=== PATIENT | female | born 1955 | race Asian ===

== ENCOUNTER 2017-03-24 01:45 | Emergency (ER) | payer OTHER ==
[~2017-03-24] VITALS: Ht 165.1 cm; Wt 70.0 kg
[~2017-03-24 01:45] MED LIST: AMLO1CAP70; CIPR500T4 PO; PHEN-537 PO
[2017-03-24] MEDS ORDERED: SOD CHLORIDE 0.9% 500 ML IV STA (01:50)
[2017-03-24] MEDS ORDERED: morphine 4 MG/ML VIAL IV STA (01:50)
[2017-03-24] MEDS ORDERED: ONDANSETRON 4 MG INJ IV STA (01:50)
[2017-03-24] MEDS ORDERED: METOCLOPRAMIDE 10 MG INJ IV STA (01:50)
[2017-03-24 02:00] VITALS: Ht 165.1 cm; Wt 70.0 kg
--- NOTE | 2017-03-24 02:32 | RADRPT ---
PROCEDURE: XR Chest. CLINICAL INDICATION: Chest pain TECHNIQUE: AP Portable chest. COMPARISON: No pertinent prior examinations were submitted for comparison. FINDINGS: There is mild cardiomegaly. The lungs are clear. The osseous structures are unremarkable. IMPRESSION: No acute findings. RPTAT: HIKT .Narciso Velasquez MD, Date Time Electronically viewed and signed by .Narciso Velasquez MD, on 03/24/2017 02:32 .T/
[2017-03-24 02:56] LABS: BASOPHILS % 0.6 % (0.0-2.0); EOSINOPHILS # 0.9 10^3/ul (0.0-0.5); EOSINOPHILS % 12.4 % (0.0-7.0); HEMATOCRIT 41.1 % (37.0-47.0); HEMOGLOBIN 13.4 g/dl (12.0-16.0); LYMPHOCYTES # 2.7 10^3/ul (0.8-2.9); LYMPHOCYTES % 38.8 % (15.0-51.0); MEAN CORPUSCULAR HEMOGLOBIN 27.9 pg (29.0-33.0); MEAN CORPUSCULAR HGB CONC 32.6 g/dl (32.0-37.0); MEAN CORPUSCULAR VOLUME 85.4 fl (82.0-101.0); MEAN PLATELET VOLUME 10.5 fl (7.4-10.4); MONOCYTE # 0.7 10^3/ul (0.3-0.9); MONOCYTES % 10.5 % (0.0-11.0); NEUTROPHIL # 2.7 10^3/ul (1.6-7.5); NEUTROPHILS % 37.6 % (39.0-77.0); PLATELET COUNT 257 10^3/UL (140-415); RED BLOOD COUNT 4.81 10^6/ul (4.20-5.40); RED CELL DISTRIBUTION WIDTH 13.3 % (11.5-14.5)
[2017-03-24 03:11] LABS: INR 0.86; PROTIME 11.7 Sec (12.2-14.2); PT RATIO 0.9
[2017-03-24 03:12] LABS: PARTIAL THROMBOPLASTIN TIME 25.6 Sec (25.0-35.0)
--- NOTE | 2017-03-24 03:31 | RADRPT ---
PROCEDURE: Noncontrast CT Head. CLINICAL INDICATION: Headache TECHNIQUE: Noncontrast CT of the head was obtained. The administered radiation dose was CTDI vol = 45 mGy, DLP = 630 mGy-cm. One or more of the following dose reduction techniques were used: automate d exposure control, adjustment of the mA and/or kV according to patient size and/or use of iterative reconstruction technique. COMPARISON: No pertinent prior examinations were submitted for comparison. FINDINGS: The ventricles and sulci are within normal limits. There is no acute intracranial hemorrhage or ext ra-axial fluid collection. There is no mass effect. No midline shift is identified. There is no loss of turcios-white differentiation to suggest acute infarction. The orbits are within normal limits. Some mild mucosal thickening is scattered throughout the par[place] theresa sinuses. No destructive osseous lesion is identified. IMPRESSION: No acute findings. RPTAT: HIKT .Narciso Velasquez MD, MD Date Time Electronically viewed and signed by .Narciso Velasquez MD, on 03/24/2017 03:30 .T/
[2017-03-24 04:35] LABS: ANION GAP 16 (8-16); BLOOD UREA NITROGEN 17 mg/dl (7-20); CALCIUM 9.8 mg/dl (8.4-10.2); CARBON DIOXIDE 27 mmol/L (21-31); CHLORIDE 103 mmol/L (97-110); CREATININE 1.01 mg/dl (0.44-1.00); GLUCOSE 114 mg/dl (70-220); POTASSIUM 3.9 mmol/L (3.5-5.1); SODIUM 142 mmol/L (135-144)
[2017-03-24 04:52] LABS: TROPONIN-I < 0.012 ng/ml (0.00-0.12)
--- NOTE | 2017-03-24 05:14 | ERD ---
ER Documentation Chief Complaint Date/Time DATE: 03/24/17 TIME: 05:12 Chief Complaint bib ra from home for dizziness, nausea, abdominal pain HPI This is a 7-year-old female brought in by rescue for dizziness headache nausea. Headache is mild to moderate intensity. No focal neurological complaints. Patient does feel mildly dizzy. No other current issues. Headache is frontal, throbbing, nonradiating with no exacerbating or alleviating factors. Headache started today with dizziness and nausea. ROS All systems reviewed and are negative except as per history of present illness. Medications Home Meds Active Scripts Phenazopyridine Hcl* (Pyridium*) 100 Mg Tab, 100 MG PO TID Y for PAIN, #8 TAB Prov:CAROL LIM PA-C 10/18/15 Ciprofloxacin Hcl* (Ciprofloxacin Hcl*) 500 Mg Tablet, 500 MG PO BID for 3 Days , TAB Prov:CAROL LIM PA-C 10/18/15 Reported Medications Amlodipine Besylate/Benazepril (Lotrel 10-20 Mg Capsule) 1 Cap Capsule 06/02/10 Allergies Allergies: Coded Allergies: No Known Drug Allergies (Verified Allergy, Mild, 10/18/15) PMhx/Soc History of Surgery: No Anesthesia Reaction: No Hx Neurological Disorder: No Hx Respiratory Disorders: No Hx Cardiac Disorders: Yes (HTN) Hx Psychiatric Problems: No Hx Miscellaneous Medical Probl: No Hx Alcohol Use: No Hx Substance Use: No Hx Tobacco Use: No Smoking Status: Never smoker Physical Exam Vitals Vital Signs Date Time Temp Pulse Resp B/P Pulse Ox O2 Delivery O2 Flow Rate FiO2 03/24/17 02:00 98.9 81 18 151/98 100 Physical Exam Const: [] Head: Atraumatic Eyes: Normal Conjunctiva ENT: Normal External Ears, Nose and Mouth. Neck: Full range of motion..~ No meningismus. Resp: Clear to auscultation bilaterally Cardio: Regular rate and rhythm, no murmurs Abd: Soft, non tender, non distended. Normal bowel sounds Skin: No petechiae or rashes Back: No midline or flank tenderness Ext: No cyanosis, or edema Neur: Awake and alert Psych: Normal Mood and Affect Result Diagram: 03/24/17 0157 03/24/17 0157 Results 24 hrs Laboratory Tests Test 03/24/17 01:57 White Blood Count 7.010^3/ul Red Blood Count 4.8110^6/ul Hemoglobin 13.4g/dl Hematocrit 41.1% Mean Corpuscular Volume 85.4fl Mean Corpuscular Hemoglobin 27.9pg Mean Corpuscular Hemoglobin Concent 32.6g/dl Red Cell Distribution Width 13.3% Platelet Count 89772^3/UL Mean Platelet Volume 10.5fl Neutrophils % 37.6% Lymphocytes % 38.8% Monocytes % 10.5% Eosinophils % 12.4% Basophils % 0.6% Nucleated Red Blood Cells % 0.0/100WBC Neutrophils # 2.710^3/ul Lymphocytes # 2.710^3/ul Monocytes # 0.710^3/ul Eosinophils # 0.910^3/ul Basophils # 0.010^3/ul Nucleated Red Blood Cells # 0.010^3/ul Prothrombin Time 11.7Sec Prothrombin Time Ratio 0.9 INR International Normalized Ratio 0.86 Activated Partial Thromboplast Time 25.6Sec Sodium Level 142mmol/L Potassium Level 3.9mmol/L Chloride Level 103mmol/L Carbon Dioxide Level 27mmol/L Anion Gap 16 Blood Urea Nitrogen 17mg/dl Creatinine 1.01mg/dl Glucose Level 114mg/dl Calcium Level 9.8mg/dl Troponin I < 0.012ng/ml Current Medications Medications (Trade) Dose Ordered Sig/Jerod Route PRN Reason Start Time Stop Time Status Last Admin Dose Admin Sodium Chloride (NS) 500 ml @ 500 mls/hr Q1H STAT IV 03/24/17 01:50 03/24/17 02:49 DC 03/24/17 02:10 Metoclopramide HCl (Reglan) 10 mg ONCE STAT IV 03/24/17 01:50 03/24/17 01:51 DC 03/24/17 02:10 Ondansetron HCl (Zofran Inj) 4 mg ONCE STAT IV 03/24/17 01:50 03/24/17 01:51 DC 03/24/17 02:10 Morphine Sulfate (morphine) 4 mg ONCE STAT IV 03/24/17 01:50 03/24/17 01:52 DC 03/24/17 02:09 Procedures/MDM EKG: Rate/Rhythm: [Normal Sinus Rhythm] QRS, ST, T-waves: [No changes consistent w/ acute ischemia] Impression: [No evidence of ischemia or arrhythmia] Chest X-ray 1V Interpreted by me: Soft Tissue: No acute abnormalities Bones: No acute abnormalities Mediastinum/Cardiac Silhouette/Lungs: [No acute abnormalities] Medical decision-making: Patient's neurologic symptoms have stabilized while they have been evaluated in the department and are appropriate for outpatient work up. No e/o meningitis, intracranial bleed, seizure, stroke. Departure Diagnosis: Primary Impression: Headache Headache type: unspecified Headache chronicity pattern: unspecified pattern Intractability: not intractable Qualified Code: R51 - Nonintractable headache, unspecified chronicity pattern, unspecified headache type Condition: Stable KATHY GRIFFIN Mar 24, 2017 05:14
[2017-03-24] MEDS ORDERED: ATEN50TA PO (05:30)
[2017-03-24] MEDS ORDERED: ACET-141 PO (05:30)
[2017-03-24] MEDS ORDERED: DOCU100C26 PO (05:30)
[2017-03-24] MEDS ORDERED: ASPI-535 PO (05:33)
[2017-03-24] MEDS ORDERED: NAPR-688 PO (05:33)
[2017-03-24] MEDS ORDERED: QUET25TA33 PO (05:45)
[2017-03-24] MEDS ORDERED: ESCI20TA38 PO (05:45)
[2017-03-24] MEDS ORDERED: ESCI10TA48 PO (05:45)
[2017-03-24] MEDS ORDERED: OMEP20CA16 PO (05:45)
[2017-03-24] MEDS ORDERED: QUET400T PO (05:45)
[2017-03-24] MEDS ORDERED: CALC1TAB79 PO (05:46)
[2017-03-24] MEDS ORDERED: MECL-77 PO (05:48)
[2017-03-24] MEDS ORDERED: MELO-210 PO (05:58)
[2017-03-24] MEDS ORDERED: OXYB5SYR2 PO (05:59)
[2017-03-24 06:03] VITALS: BP 144/88; PULSE 82; RESP 20; TEMP 98.5
== END 2017-03-24 06:04 | disposition home or self-care (01) ==
LOC: E/R 01:45
DX: R51 Headache (principal); R11.0 Nausea; I10 Essential (primary) hypertension; R07.9 Chest pain, unspecified
CPT/HCPCS: 36415; 70450; 71010; 80048; 84484; 85025; 85610; 85730; 93005; 96374; 96375; J2270; J2405; J2765; J7040; Z7502

== ENCOUNTER 2017-09-04 13:23 | Inpatient (IN) | END 2017-09-08 20:45 | disposition home or self-care (01) | DRG 444 ==